=== PATIENT | male | born 1955 | race Hispanic/Latino ===

== ENCOUNTER 2016-08-20 16:29 | Emergency (ER) | payer SELFPAY ==
[2016-08-20] MEDS ORDERED: predniSONE 20 MG TAB ONE (18:51)
--- NOTE | 2016-08-20 19:01 | ERRECORD ---
[facility] EMERGENCY RECORD HPI ARTHRITIS (18:47 JL) CHIEF COMPLAINT: Patient presents for evaluation of left wrist, joint pain, joint swelling, Patient presents for evaluation of left finger joints, joint pain, joint swelling, Patient presents for evaluation of right wrist, joint pain, joint swelling, Patient presents for evaluation of right finger joints, joint pain, joint swelling, Patient presents for evaluation of Pt with chronic imflamatory arthritis. Off meds for months due to no insurance. He comes in when it gets bad for a few days of prednisone to calm it down. He says the past few days he has had increased pain and swelling in his wrist and hand joints. HISTORIAN: History provided by patient. LOCATION: Symptoms are generalized. QUALITY: Pain is dull in nature. TIME COURSE: Gradual onset of symptoms, Symptoms are worsening, are constant. ASSOCIATED WITH: No associated chills, No associated cough, No associated fever, No associated headache, No associated rash, Associated with stiffness, No associated trauma, No associated upper respiratory infection. EXACERBATED BY: Patient's condition exacerbated by extension, Patient's condition exacerbated by flexion. RELIEVED BY: Patient's condition relieved by nothing. ROS (18:49 [facility]) CONSTITUTIONAL: Historian denies chills, denies fever. RESPIRATORY: Historian denies cough. GI: Historian denies nausea, denies vomiting. MUSCULOSKELETAL: Historian reports joint stiffness, reports joint swelling. SKIN: Historian denies rash. NEUROLOGIC: Historian denies headache. PAST MEDICAL HISTORY MEDICAL HISTORY: arthritis, hepatitis C. (18:22 [facility]) MALE SURGICAL HISTORY: Patient has no surgical history. (18:22 [facility]) PSYCHIATRIC HISTORY: No previous psychiatric history. (18:22 [facility]) SOCIAL HISTORY: Patient drinks socially, Patient denies drug use, Patient currently uses tobacco, smokes cigarettes, Light tobacco smoker, Patient drinks socially, every week, Alcohol history notes: every 3-4 days, Patient is a former drug user, abused cocaine, Patient currently uses tobacco, Occasional or some day smoker, Patient has smoked for 30 years, Patient smokes 1/2 packs per day, Lives at home, alone. (18:22 [facility]) NOTES: Nursing records reviewed, Agree with nursing records. (18:50 [facility]) &a-1R&a+25V*p+0X*l8950K*c202B*c15G*c2P*p-0X&a-25V&a+1R Name: Marvin Baca : 1955 M61 MedRec: [id number] AcctNum: [id number] Prepared: SatAug 20, 2016 19:00 by Interface Page 1 of 2 pMD [facility] EMERGENCY RECORD KNOWN ALLERGIES codeine sulfate (Unconfirmed): Reaction: Nausea CURRENT MEDICATIONS No recorded medications VITAL SIGNS (18:17 [facility]) VITAL SIGNS: BP: 178/84, Pulse: 61, Resp: 18, Temp: 97.8 (Oral), Pain: 9, O2 sat: 97 on Room Air, Time: 08/20/2016 18:17. PHYSICAL EXAM (18:49 [facility]) CONSTITUTIONAL: Vital signs reviewed, Patient appears non toxic, Patient alert and oriented to person, place and time. EYES: Eye exam included findings of eyelids normal to inspection, Pupils equally round and reactive to light, Conjunctiva normal. UPPER EXTREMITY: Upper extremity exam included findings of inspection normal, range of motion normal, Radial pulse normal, distal motor intact, distal sensory intact, diffuse arthritic changes in hands and wrists. NEURO: Sondra coma scale 15, Neuro exam findings include patient oriented to person, place and time, Speech normal. SKIN: Skin exam included findings of skin warm, dry, and normal in color, no rash. PSYCHIATRIC: Normal affect. MEDICATION ADMINISTRATION SUMMARY Drug Name: predniSONE oral, Dose Ordered: 40 mg, Route: Oral, Status: Given, Time: 18:53 08/20/2016, Detailed record available in Medication Service section. PROBLEM LIST No recorded problems DIAGNOSIS (18:45 [facility]) FINAL: PRIMARY: RHEUMATOID ARTHRITIS UNSPECIFIED. PRESCRIPTION (18:44 [facility]) predniSONE oral: TABLET : 20 mg : ORAL : Quantity: 40 Unit: mg Route: ORAL Schedule: once a day Dispense: 5 DAYS May substitute. Refills: No Refills . NOTES: No Refills. DISPOSITION PATIENT: Disposition Type: Discharge, Disposition: *Discharge Home. (18:45 [facility]) Patient left the department. (18:54 [facility]) Kruse: [facility]=MD Miguel, Rigoberto [facility]=WALT Connor, Kristin &a-1R&a+25V*p+0X*s1842D*c202B*c15G*c2P*p-0X&a-25V&a+1R Name: Marvin Baca : 1955 M61 MedRec: [id number] AcctNum: [id number] Prepared: SatAug 20, 2016 19:00 by Interface Page 2 of 2 pMD MTDD
--- NOTE | 2016-08-20 19:07 | PICIS ---
[facility] EMERGENCY RECORD TRIAGE (18:20 [facility]) TRIAGE NOTES: Pt reporting to ER due to chronic arthritis pain. Diffuse all over aches. (18:20 [facility]) PATIENT: NAME: Marvin Baca, AGE: 61, GENDER: male, : Sat1955, TIME OF GREET: SatAug 20, 2016 16:30, PREFERRED LANGUAGE: Latvian, ETHNICITY: or , ECODE BILLING MAP: [facility] ER, SSN: [id number], Zip Code: [address], KG WEIGHT: 77.11 (est.), PHONE: , , , PERSON ID: [id number], PCP: Clare METZ POLLACHI. (18:20 [facility]) COMPLAINT: BODY PAIN/ARTHRITIS. (18:20 [facility]) ADMISSION: URGENCY: 4 Non Urgent, ADMISSION SOURCE: Work, TRANSPORT: Walk-in, BED: ER -04. (18:20 [facility]) IMMUNIZATIONS: Flu vaccine not up to date, Tetanus not up to date. (18:22 [facility]) SIRS SCORING: Heart Rate 55-109 (0), Temp range 96.8-101.1 (0), respiratory rate 12-24 (0), Mental Status altered: no (0). (18:22 [facility]) TRIAGE SCREENING: Patient denies suicidal ideation, Patient denies presence of domestic violence. (18:22 [facility]) PROVIDERS: TRIAGE NURSE: Kristin Connor RN. (18:20 [facility]) VITAL SIGNS: BP 178/84, Pulse 61, Resp 18, Temp 97.8, (Oral), Pain 9, O2 Sat 97, on Room Air, Time 08/20/2016 18:17. (18:17 [facility]) PREVIOUS VISIT ALLERGIES: codeine sulfate. (18:20 [facility]) codeine sulfate. (18:22 [facility]) KNOWN ALLERGIES codeine sulfate (Unconfirmed): Reaction: Nausea CURRENT MEDICATIONS No recorded medications VITAL SIGNS (18:17 [facility]) VITAL SIGNS: BP: 178/84, Pulse: 61, Resp: 18, Temp: 97.8 (Oral), Pain: 9, O2 sat: 97 on Room Air, Time: 08/20/2016 18:17. NURSING ASSESSMENT: HEAD-TO-TOE (18:22 [facility]) CONSTITUTIONAL: Complex assessment performed, Patient arrives ambulatory, Gait steady, History obtained from patient, Patient appears comfortable, Patient cooperative, Patient alert, Oriented to person, place and time, Skin warm, Skin dry, Skin normal in color, Pt reporting diffuse, [id number]-[id number] pain. Hx arthritis, chronic pain. Says he was here previously and given something for his pain, and missed his last apt with his primary doc. Reports not being able to raise his arms above shoulder level this AM due to pain. PAIN: bilat wrists, elbows, thimbs, R 1st and 2nd knuckles, on a scale 0-10 patient rates pain as 9. SKIN: Skin assessment findings include skin warm, Skin dry, Skin normal in color. NEURO: Pupils equally round and reactive to light, Able to close &a-1R&a+25V*p+0X*n1547V*c202B*c15G*c2P*p-0X&a-25V&a+1R Name: Marvin Baca : 1955 M61 MedRec: [id number] AcctNum: [id number] Prepared: SatAug 20, 2016 19:00 by Interface Page 1 of 4 pMD [facility] EMERGENCY RECORD eyes, Face symmetrical, Speech normal, GCS:, Eye opening: (4) - Spontaneous, Verbal: (5) - Oriented/conversive, Motor: (6) - Obeys commands/Spontaneous, GCS Total: 15. RESPIRATORY/CHEST: Breath sounds clear, Respiratory assessment findings include respiratory effort easy, Respirations regular, Conversing normally, Neck and chest exam findings include trachea midline, Chest expansion equal, Chest movement symmetrical. SAFETY: Side rails up, Cart/Stretcher in lowest position, Call light within reach, Hospital ID band on. NURSING PROCEDURE: DISCHARGE NOTE (18:54 [facility]) DISCHARGE: Patient discharged to home, ambulating without assistance, driving self, unaccompanied, Discharge instructions given to patient, Simple or moderate discharge teaching performed, by WALT Foster, Patient treated and evaluated by physician. BELONGINGS: Belongings and valuables with patient upon arrival to the Emergency Department include:, Belongings and valuables with patient at time of discharge include:. SAFETY: Side rails up, Cart/Stretcher in lowest position, Call light within reach, Hospital ID band on. MEDICATION ADMINISTRATION SUMMARY Drug Name: predniSONE oral, Dose Ordered: 40 mg, Route: Oral, Status: Given, Time: 18:53 08/20/2016, Detailed record available in Medication Service section. MEDICATION SERVICE (18:53 [facility]) predniSONE oral: Order: predniSONE oral (prednisone) - Dose: 40 mg : Oral Ordered by: Rigoberto Rivera MD Entered by: Rigoberto Rivera MD SatAug 20, 2016 18:44 , Acknowledged by: Kristin Connor RN SatAug 20, 2016 18:50 Documented as given by: Kristin Connor RN SatAug 20, 2016 18:53 Patient, Medication, Dose, Route and Time verified prior to administration. Amount given: 40 mg, Site: Medication administered P.O., Correct patient, time, route, dose and medication confirmed prior to administration, Patient advised of actions and side-effects prior to administration, Allergies confirmed and medications reviewed prior to administration, Patient tolerated procedure well, Administered by WALT Malone, Patient in position of comfort, Side rails up, Cart in lowest position, Call light in reach. HPI ARTHRITIS (18:47 [facility]) CHIEF COMPLAINT: Patient presents for evaluation of left wrist, joint pain, joint swelling, Patient presents for evaluation of left finger joints, joint pain, joint swelling, Patient presents for evaluation of right wrist, joint pain, joint &a-1R&a+25V*p+0X*t8675G*c202B*c15G*c2P*p-0X&a-25V&a+1R Name: Marvin Baca : 1955 M61 MedRec: [id number] AcctNum: [id number] Prepared: SatAug 20, 2016 19:00 by Interface Page 2 of 4 pMD [facility] EMERGENCY RECORD swelling, Patient presents for evaluation of right finger joints, joint pain, joint swelling, Patient presents for evaluation of Pt with chronic imflamatory arthritis. Off meds for months due to no insurance. He comes in when it gets bad for a few days of prednisone to calm it down. He says the past few days he has had increased pain and swelling in his wrist and hand joints. HISTORIAN: History provided by patient. LOCATION: Symptoms are generalized. QUALITY: Pain is dull in nature. TIME COURSE: Gradual onset of symptoms, Symptoms are worsening, are constant. ASSOCIATED WITH: No associated chills, No associated cough, No associated fever, No associated headache, No associated rash, Associated with stiffness, No associated trauma, No associated upper respiratory infection. EXACERBATED BY: Patient's condition exacerbated by extension, Patient's condition exacerbated by flexion. RELIEVED BY: Patient's condition relieved by nothing. ROS (18:49 [facility]) CONSTITUTIONAL: Historian denies chills, denies fever. RESPIRATORY: Historian denies cough. GI: Historian denies nausea, denies vomiting. MUSCULOSKELETAL: Historian reports joint stiffness, reports joint swelling. SKIN: Historian denies rash. NEUROLOGIC: Historian denies headache. PAST MEDICAL HISTORY MEDICAL HISTORY: arthritis, hepatitis C. (18:22 [facility]) MALE SURGICAL HISTORY: Patient has no surgical history. (18:22 [facility]) PSYCHIATRIC HISTORY: No previous psychiatric history. (18:22 [facility]) SOCIAL HISTORY: Patient drinks socially, Patient denies drug use, Patient currently uses tobacco, smokes cigarettes, Light tobacco smoker, Patient drinks socially, every week, Alcohol history notes: every 3-4 days, Patient is a former drug user, abused cocaine, Patient currently uses tobacco, Occasional or some day smoker, Patient has smoked for 30 years, Patient smokes 1/2 packs per day, Lives at home, alone. (18:22 [facility]) NOTES: Nursing records reviewed, Agree with nursing records. (18:50 [facility]) PHYSICAL EXAM (18:49 [facility]) CONSTITUTIONAL: Vital signs reviewed, Patient appears non toxic, Patient alert and oriented to person, place and time. EYES: Eye exam included findings of eyelids normal to inspection, Pupils equally round and reactive to light, Conjunctiva normal. UPPER EXTREMITY: Upper extremity exam included findings of &a-1R&a+25V*p+0X*d1236F*c202B*c15G*c2P*p-0X&a-25V&a+1R Name: Marvin Baca : 1955 M61 MedRec: [id number] AcctNum: [id number] Prepared: SatAug 20, 2016 19:00 by Interface Page 3 of 4 pMD [facility] EMERGENCY RECORD inspection normal, range of motion normal, Radial pulse normal, distal motor intact, distal sensory intact, diffuse arthritic changes in hands and wrists. NEURO: Sondra coma scale 15, Neuro exam findings include patient oriented to person, place and time, Speech normal. SKIN: Skin exam included findings of skin warm, dry, and normal in color, no rash. PSYCHIATRIC: Normal affect. EVENTS TRANSFER: Triage to Emergency Emergency Room -04. (SatAug 20, 2016 18:20 [facility]) Removed from Emergency Emergency Room -04. (18:54 [facility]) PROBLEM LIST No recorded problems DIAGNOSIS (18:45 [facility]) FINAL: PRIMARY: RHEUMATOID ARTHRITIS UNSPECIFIED. DISPOSITION PATIENT: Disposition Type: Discharge, Disposition: *Discharge Home. (18:45 [facility]) Patient left the department. (18:54 [facility]) INSTRUCTION (18:46 [facility]) DISCHARGE: ARTHRITIS RHEUMATOID. FOLLOWUP: Clare METZ, ISABEL, Internal Medicine, [address] [place] [id number], [phone], Follow up with Primary Care Physician in 7-10 days. PRESCRIPTION (18:44 [facility]) predniSONE oral: TABLET : 20 mg : ORAL : Quantity: 40 Unit: mg Route: ORAL Schedule: once a day Dispense: 5 DAYS May substitute. Refills: No Refills . NOTES: No Refills. IMAGING *DISCHARGE INSTRUCTIONS RECEIPT: Image captured from scanner. (18:55 [facility]) *SUPPLY CHARGE SHEET: Image captured from scanner. (18:56 [facility]) ADMIN (18:50 [facility]) DIGITAL SIGNATURE: MD Rivera Joshua. Kruse: [facility]=MD Rivera Joshua [facility]=WALT Connor, Kristin &a-1R&a+25V*p+0X*h9391R*c202B*c15G*c2P*p-0X&a-25V&a+1R Name: Marvin Baca : 1955 M61 MedRec: [id number] AcctNum: [id number] Prepared: Mon Aug 20, 2016 19:00 by Interface Page 4 of 4 pMD MTDD
== END 2016-08-20 18:54 | disposition home or self-care (01) ==
LOC: NAV ERS 16:29
DX: M06.9 Rheumatoid arthritis, unspecified (principal); F17.210 Nicotine dependence, cigarettes, uncomplicated
CPT/HCPCS: 99283; J7506

== ENCOUNTER 2016-09-10 12:53 | Emergency (ER) | payer SELFPAY ==
[2016-09-10] MEDS ORDERED: methylPREDNISolone Sod Succ/PF 125 MG/2 ML VIAL ONE (13:20)
== END 2016-09-10 13:38 | disposition home or self-care (01) ==
LOC: NAV ERS 12:53
DX: M13.0 Polyarthritis, unspecified (principal); I10 Essential (primary) hypertension; B19.20 Unspecified viral hepatitis C without hepatic coma; F17.210 Nicotine dependence, cigarettes, uncomplicated
CPT/HCPCS: 96372; J2930

== ENCOUNTER 2016-10-20 13:07 | Emergency (ER) | payer SELFPAY | END 2016-10-20 13:38 | disposition home or self-care (01) | LOC: NAV ERS 13:07 | DX: M06.9 Rheumatoid arthritis, unspecified (principal); I10 Essential (primary) hypertension; F17.210 Nicotine dependence, cigarettes, uncomplicated; Z79.899 Other long term (current) drug therapy | CPT/HCPCS: 99283 ==

== ENCOUNTER 2016-10-24 12:57 | Emergency (ER) | payer SELFPAY | END 2016-10-24 13:14 | disposition home or self-care (01) | LOC: NAV ERS 12:57 | DX: M19.90 Unspecified osteoarthritis, unspecified site (principal); I10 Essential (primary) hypertension; F17.210 Nicotine dependence, cigarettes, uncomplicated ==

== ENCOUNTER 2016-12-10 12:59 | Emergency (ER) | payer SELFPAY ==
[2016-12-10] MEDS ORDERED: predniSONE 20 MG TAB ONE (13:40)
== END 2016-12-10 13:47 | disposition home or self-care (01) ==
LOC: NAV ERS 12:59
DX: M19.032 Primary osteoarthritis, left wrist (principal); M19.031 Primary osteoarthritis, right wrist; M19.012 Primary osteoarthritis, left shoulder; M19.011 Primary osteoarthritis, right shoulder; M19.042 Primary osteoarthritis, left hand; M19.041 Primary osteoarthritis, right hand; I10 Essential (primary) hypertension; F17.210 Nicotine dependence, cigarettes, uncomplicated
CPT/HCPCS: 99283; J7506

== ENCOUNTER 2017-10-11 17:33 | Emergency (ER) | payer SELFPAY ==
[2017-10-11] MEDS ORDERED: predniSONE 20 MG TAB ONE (17:53)
== END 2017-10-11 17:54 | disposition home or self-care (01) ==
LOC: NAV ERS 17:33
DX: M13.0 Polyarthritis, unspecified (principal); I10 Essential (primary) hypertension; F17.210 Nicotine dependence, cigarettes, uncomplicated
CPT/HCPCS: 99283; J7506

== ENCOUNTER 2017-11-04 16:13 | Emergency (ER) | payer SELFPAY ==
[2017-11-04] MEDS ORDERED: methylPREDNISolone Acetate 40 mg/ml Vial ONE (16:50)
== END 2017-11-04 16:59 | disposition home or self-care (01) ==
LOC: NAV ERS 16:13
DX: M06.9 Rheumatoid arthritis, unspecified (principal); I10 Essential (primary) hypertension; Z87.891 Personal history of nicotine dependence; Z79.899 Other long term (current) drug therapy
CPT/HCPCS: 96372; J1030

== ENCOUNTER 2017-12-14 16:42 | Emergency (ER) | payer SELFPAY ==
[2017-12-14] MEDS ORDERED: methylPREDNISolone Acetate 40 mg/ml Vial ONE (17:30)
[2017-12-14 17:31] LABS: #Basophils 0.1 thou/uL (0.0-0.2); #Eosinphils 0.2 thou/uL (0.0-0.7); #Lymphocytes 2.3 thou/uL (1.20-3.40); #Monocytes 0.7 thou/uL (0.11-0.59); #Neutrophils 3.8 thou/uL (1.40-6.50); %Basophils 1.6 % (0.0-1.0); %Eosinophils 2.7 % (0.0-10.0); %Lymphocytes 31.8 % (21.0-51.0); %Monocytes 9.5 % (0.0-10.0); %Neutrophils 54.3 % (42.0-75.0); Hemoglobin 14.5 g/dL (14.0-18.0); Mean Corpuscular HGB CONC 31.8 g/dL (32.0-36.0); Mean Corpuscular Hemoglobin 29.7 pg (27.0-31.0); Mean Corpuscular Volume 93.5 fl (80.0-94.0); Mean Platelet Volume 6.4 fL (7.4-10.4); Platelet Count 285 thou/uL (130-400); RBC Distribution Width 12.4 % (11.5-14.5); Red Blood Cell (RBC) Count 4.87 mill/uL (4.70-6.10); White Blood Cell (WBC) Count 7.1 thou/uL (4.8-10.8)
[2017-12-14 17:48] LABS: Anion Gap 14 mmol/L (10-20); BUN (Urea Nitrogen) 10 mg/dL (8.4-25.7); Calc. Creatinine Clearance 0 mL/min (70-130); Calcium 8.9 mg/dL (7.8-10.44); Carbon Dioxide 20 mmol/L (22-29); Chloride 113 mmol/L (98-107); Estimated GFR-MDRD Greater than 90; Glucose 98 mg/dL (70-105); Potassium 3.7 mmol/L (3.5-5.1); Sodium 143 mmol/L (136-145)
== END 2017-12-14 18:07 | disposition home or self-care (01) ==
LOC: NAV ERS 16:42
DX: M06.9 Rheumatoid arthritis, unspecified (principal); I10 Essential (primary) hypertension; M19.90 Unspecified osteoarthritis, unspecified site; Z86.19 Personal history of other infectious and parasitic diseases; Z87.891 Personal history of nicotine dependence; Z79.899 Other long term (current) drug therapy
CPT/HCPCS: 80048; 85025; 96372; J1030

== ENCOUNTER 2018-01-20 12:42 | Emergency (ER) | payer SELFPAY ==
[2018-01-20] MEDS ORDERED: Meclizine HCl 25 MG TAB ONE (13:09)
[2018-01-20] MEDS ORDERED: Sodium Chloride 0.9% 1,000 ML ONE (13:09)
[2018-01-20] MEDS ORDERED: Ondansetron ODT 4 MG TAB ONE (13:09)
[2018-01-20 13:35] LABS: #Basophils 0.1 thou/uL (0.0-0.2); #Eosinphils 0.1 thou/uL (0.0-0.7); #Lymphocytes 2.1 thou/uL (1.20-3.40); #Monocytes 0.7 thou/uL (0.11-0.59); #Neutrophils 5.1 thou/uL (1.40-6.50); %Basophils 1.4 % (0.0-1.0); %Eosinophils 1.2 % (0.0-10.0); %Lymphocytes 26.2 % (21.0-51.0); %Monocytes 8.6 % (0.0-10.0); %Neutrophils 62.6 % (42.0-75.0); Hemoglobin 15.6 g/dL (14.0-18.0); Mean Corpuscular HGB CONC 33.2 g/dL (32.0-36.0); Mean Corpuscular Hemoglobin 30.3 pg (27.0-31.0); Mean Corpuscular Volume 91.2 fL (78.0-98.0); Mean Platelet Volume 7.6 fL (7.4-10.4); Platelet Count 245 thou/uL (130-400); RBC Distribution Width 11.6 % (11.5-14.5); Red Blood Cell (RBC) Count 5.13 mill/uL (4.70-6.10); White Blood Cell (WBC) Count 8.1 thou/uL (4.8-10.8)
[2018-01-20 13:51] LABS: ALT (SGPT) 36 U/L (8-55); AST (SGOT) 28 U/L (5-34); Albumin 3.7 g/dL (3.5-5.0); Alkaline Phosphatase 52 U/L (40-150); Anion Gap 13 mmol/L (10-20); BUN (Urea Nitrogen) 8 mg/dL (8.4-25.7); Bilirubin, Total 1.2 mg/dL (0.2-1.2); Calc. Creatinine Clearance 0 mL/min (70-130); Calcium 9.2 mg/dL (7.8-10.44); Carbon Dioxide 21 mmol/L (22-29); Chloride 106 mmol/L (98-107); Estimated GFR-MDRD Greater than 90; Globulin 3.7 g/dL (2.4-3.5); Glucose 102 mg/dL (70-105); Potassium 3.4 mmol/L (3.5-5.1); Protein, Total 7.4 g/dL (6.0-8.3); Sodium 137 mmol/L (136-145)
[2018-01-20 13:55] LABS: CKMB 0.9 ng/mL (0-6.6); Troponin I 0.015 ng/mL (< 0.028)
--- NOTE | 2018-01-20 14:38 | CT ---
CT HEAD NONCONTRAST: Date: 01/20/18 HISTORY: Hypertension. Altered mental status. FINDINGS: No comparison. There is no evidence of acute intracranial hemorrhage or infarct. There is a subtle area of decreased density through the periphery of each occipital lobe have the appearance of old ischemic insults. Th ere is no mass effect or shift of midline structures. Visualized paranasal sinuses remain well aerate d. IMPRESSION: Chronic-type findings. No acute intracranial abnormalities are demonstrated on noncontrast CT head. POS: [facility]
--- NOTE | 2018-01-20 14:40 | RAD ---
AP VIEW OF CHEST: Date: 01/20/18 INDICATION: Dizziness. COMPARISON: None. FINDINGS: There is linear opacity involving both lung bases that may reflect subsegmental volume loss. No defin ite air space consolidation, pleural effusion, or pneumothorax is evident. No acute osseous abnormali ty is evident. Scattered degenerative change. IMPRESSION: Bibasilar atelectasis. POS: [facility]
== END 2018-01-20 14:42 | disposition home or self-care (01) ==
LOC: NAV ERS 12:42
DX: H81.399 Other peripheral vertigo, unspecified ear (principal); I10 Essential (primary) hypertension; Z87.891 Personal history of nicotine dependence; Z79.899 Other long term (current) drug therapy
CPT/HCPCS: 36415; 70450; 71045; 80053; 82553; 84484; 85025; 93005; 94760; 96360; 99406; J7050; Q0162

== ENCOUNTER 2018-04-25 09:34 | Emergency (ER) | payer SELFPAY ==
[2018-04-25] MEDS ORDERED: traMADol HCl 50 MG TAB ONE (11:13)
[2018-04-25] MEDS ORDERED: methylPREDNISolone Acetate 40 mg/ml Vial ONE (11:14)
== END 2018-04-25 11:28 | disposition home or self-care (01) ==
LOC: NAV ERS 09:34
DX: M06.9 Rheumatoid arthritis, unspecified (principal); I10 Essential (primary) hypertension; Z87.891 Personal history of nicotine dependence; Z79.899 Other long term (current) drug therapy
CPT/HCPCS: 99283; J1030

== ENCOUNTER 2018-05-30 15:30 | Emergency (ER) | payer SELFPAY | END 2018-05-30 16:43 | disposition home or self-care (01) | LOC: NAV ERS 15:30 | DX: M19.90 Unspecified osteoarthritis, unspecified site (principal); I10 Essential (primary) hypertension; Z79.899 Other long term (current) drug therapy; Z87.891 Personal history of nicotine dependence | CPT/HCPCS: 99283 ==

== ENCOUNTER 2019-03-11 10:07 | Emergency (ER) | payer SELFPAY ==
[2019-03-11] MEDS ORDERED: Ketorolac Tromethamine 30 MG/ML VIAL ONE (10:22)
[2019-03-11 10:40] LABS: #Basophils 0.1 thou/uL (0.0-0.2); #Eosinphils 0.3 thou/uL (0.0-0.7); #Lymphocytes 2.8 thou/uL (1.20-3.40); #Monocytes 0.7 thou/uL (0.11-0.59); #Neutrophils 3.5 thou/uL (1.40-6.50); %Basophils 1.5 % (0.0-1.0); %Eosinophils 4.2 % (0.0-10.0); %Lymphocytes 37.2 % (21.0-51.0); %Monocytes 9.9 % (0.0-10.0); %Neutrophils 47.3 % (42.0-75.0); Hemoglobin 16.2 g/dL (14.0-18.0); Mean Corpuscular HGB CONC 32.9 g/dL (32.0-36.0); Mean Corpuscular Volume 94.3 fL (78.0-98.0); Mean Platelet Volume 7.5 fL (7.4-10.4); Platelet Count 162 thou/uL (130-400); RBC Distribution Width 11.7 % (11.5-14.5); Red Blood Cell (RBC) Count 5.21 mill/uL (4.70-6.10); White Blood Cell (WBC) Count 7.4 thou/uL (4.8-10.8)
--- NOTE | 2019-03-11 10:51 | RAD ---
XR Chest 1 View Portable HISTORY: Left-sided chest pain COMPARISON: 01/20/2018 FINDINGS: The heart size is normal. The lungs are well expanded without focal areas of consolidation, pneumothorax or pleural effusions. IMPRESSION: No radiographic evidence of acute cardiopulmonary process.
[2019-03-11 10:53] LABS: ALT (SGPT) 107 U/L (8-55); AST (SGOT) 59 U/L (5-34); Albumin 3.2 g/dL (3.4-4.8); Alkaline Phosphatase 63 U/L (40-150); Anion Gap 12 mmol/L (10-20); BUN (Urea Nitrogen) 13 mg/dL (8.4-25.7); Bilirubin, Total 0.5 mg/dL (0.2-1.2); CK (CPK) 26 U/L (30-200); Calc. Creatinine Clearance 0 mL/min (70-130); Calcium 8.8 mg/dL (7.8-10.44); Carbon Dioxide 23 mmol/L (23-31); Chloride 110 mmol/L (98-107); Estimated GFR-MDRD 89; Globulin 3.7 g/dL (2.4-3.5); Glucose 104 mg/dL (80-115); Potassium 3.7 mmol/L (3.5-5.1); Protein, Total 6.9 g/dL (5.8-8.1); Sodium 141 mmol/L (136-145)
== END 2019-03-11 11:23 | disposition home or self-care (01) ==
LOC: NAV ERS 10:07
DX: R07.89 Other chest pain (principal); F17.210 Nicotine dependence, cigarettes, uncomplicated; I10 Essential (primary) hypertension; Z79.899 Other long term (current) drug therapy
CPT/HCPCS: 71045; 80053; 82550; 84484; 85025; 93005; 96372; J1885

== ENCOUNTER 2019-04-26 17:04 | Emergency (ER) | payer SELFPAY ==
[2019-04-26] MEDS ORDERED: methylPREDNISolone Sod Succ/PF 125 MG/2 ML VIAL ONE (17:39)
== END 2019-04-26 17:45 | disposition home or self-care (01) ==
LOC: NAV ERS 17:04
DX: M54.42 Lumbago with sciatica, left side (principal); I10 Essential (primary) hypertension; F17.290 Nicotine dependence, other tobacco product, uncomplicated; Z79.52 Long term (current) use of systemic steroids; Z79.899 Other long term (current) drug therapy
CPT/HCPCS: 96372; 99283; J2930

== ENCOUNTER 2019-05-02 13:59 | Emergency (ER) | payer SELFPAY ==
[2019-05-02] MEDS ORDERED: Acetaminophen 325 MG TAB ONE (15:22)
[2019-05-02] MEDS ORDERED: Ketorolac Tromethamine 60 MG/2 ML VIAL ONE (15:22)
[2019-05-02] MEDS ORDERED: traMADol HCl 50 MG TAB ONE (15:27)
[2019-05-02] MEDS ORDERED: Orphenadrine Citrate 60 MG/2 ML VIAL ONE (15:28)
== END 2019-05-02 15:50 | disposition home or self-care (01) ==
LOC: NAV ERS 13:59
DX: M54.16 Radiculopathy, lumbar region (principal); M54.42 Lumbago with sciatica, left side; I10 Essential (primary) hypertension; F17.210 Nicotine dependence, cigarettes, uncomplicated
CPT/HCPCS: 96372; 99283; J1885; J2360

== ENCOUNTER 2020-08-04 09:49 | Emergency (ER) | payer SELFPAY ==
[2020-08-04] MEDS ORDERED: Ketorolac Tromethamine 30 MG/ML VIAL ONE (10:21)
--- NOTE | 2020-08-04 10:41 | RAD ---
Chest one view HISTORY: Chest pain. COMPARISON: 03/11/2019. FINDINGS: Cardiac silhouette and pulmonary vasculature are unremarkable. Mediastinum is midline. Lungs remain slightly hyperinflated with linear scarring at the lung bases. No lobar consolidation or evidence of pneumothorax. IMPRESSION : No acute abnormalities are demonstrated.
[2020-08-04 10:48] LABS: ALT (SGPT) 57 U/L (8-55); AST (SGOT) 37 U/L (5-34); Albumin 3.6 g/dL (3.4-4.8); Alkaline Phosphatase 70 U/L (40-110); Anion Gap 15 mmol/L (10-20); BUN (Urea Nitrogen) 16 mg/dL (8.4-25.7); Bilirubin, Total 0.6 mg/dL (0.2-1.2); Calc. Creatinine Clearance 0 mL/min (70-130); Calcium 9.3 mg/dL (7.8-10.44); Carbon Dioxide 19 mmol/L (23-31); Chloride 108 mmol/L (98-107); Globulin 4.6 g/dL (2.4-3.5); Glucose 105 mg/dL (80-115); Potassium 3.5 mmol/L (3.5-5.1); Protein, Total 8.2 g/dL (5.8-8.1); Sodium 138 mmol/L (136-145)
[2020-08-04 11:09] LABS: #Basophils 0.1 thou/uL (0.0-0.2); #Eosinphils 0.4 thou/uL (0.0-0.7); #Lymphocytes 3.2 thou/uL (1.20-3.40); #Neutrophils 4.1 thou/uL (1.40-6.50); %Basophils 1.5 % (0.0-1.0); %Eosinophils 4.3 % (0.0-10.0); %Lymphocytes 36.6 % (21.0-51.0); %Monocytes 11.1 % (0.0-10.0); %Neutrophils 46.5 % (42.0-75.0); Hemoglobin 14.9 g/dL (14.0-18.0); Mean Corpuscular HGB CONC 34.3 g/dL (32.0-36.0); Mean Corpuscular Volume 93.2 fL (78.0-98.0); Mean Platelet Volume 8.1 fL (7.4-10.4); Platelet Count 87 thou/uL (130-400); RBC Distribution Width 10.6 % (11.5-14.5); Red Blood Cell (RBC) Count 4.65 mill/uL (4.70-6.10); White Blood Cell (WBC) Count 8.7 thou/uL (4.8-10.8)
[2020-08-04 11:10] LABS: MDiff Complete? YES; Platelet Clumps SLIGHT; Platelet Morphology Comment Appears Decreased
== END 2020-08-04 11:28 | disposition home or self-care (01) ==
LOC: NAV ERS 09:49
DX: S29.011A Strain of muscle and tendon of front wall of thorax, initial encounter (principal); I10 Essential (primary) hypertension; M06.9 Rheumatoid arthritis, unspecified; F17.210 Nicotine dependence, cigarettes, uncomplicated; Z79.899 Other long term (current) drug therapy
CPT/HCPCS: 71045; 80053; 84484; 85025; 93005; 96374; J1885

== ENCOUNTER 2021-02-12 13:45 | Emergency (ER) | payer OTHER, SELFPAY ==
[~2021-02-12 13:45] MED LIST: Iopamidol 370 76% 100 ML VIAL ONE
[2021-02-12 14:21] LABS: #Basophils 0.1 thou/uL (0.0-0.2); #Eosinphils 0.3 thou/uL (0.0-0.7); #Lymphocytes 2.4 thou/uL (1.20-3.40); #Monocytes 0.6 thou/uL (0.11-0.59); #Neutrophils 3.9 thou/uL (1.40-6.50); %Basophils 1.7 % (0.0-1.0); %Eosinophils 3.8 % (0.0-10.0); %Lymphocytes 33.5 % (21.0-51.0); %Monocytes 7.6 % (0.0-10.0); %Neutrophils 53.3 % (42.0-75.0); Hemoglobin 13.7 g/dL (14.0-18.0); Mean Corpuscular HGB CONC 31.5 g/dL (32.0-36.0); Mean Corpuscular Hemoglobin 32.6 pg (27.0-31.0); Platelet Count 167 thou/uL (130-400); RBC Distribution Width 12.1 % (11.5-14.5); Red Blood Cell (RBC) Count 4.19 mill/uL (4.70-6.10); White Blood Cell (WBC) Count 7.3 thou/uL (4.8-10.8)
[2021-02-12 14:34] LABS: ALT (SGPT) 48 U/L (8-55); AST (SGOT) 44 U/L (5-34); Albumin 3.2 g/dL (3.4-4.8); Alkaline Phosphatase 66 U/L (40-110); Anion Gap 12 mmol/L (10-20); BUN (Urea Nitrogen) 12 mg/dL (8.4-25.7); Bilirubin, Total 0.7 mg/dL (0.2-1.2); Calc. Creatinine Clearance 0 mL/min (70-130); Carbon Dioxide 23 mmol/L (23-31); Chloride 110 mmol/L (98-107); Globulin 3.9 g/dL (2.4-3.5); Glucose 111 mg/dL (80-115); Lipase 55 U/L (8-78); Potassium 3.9 mmol/L (3.5-5.1); Protein, Total 7.1 g/dL (5.8-8.1); Sodium 141 mmol/L (136-145)
[2021-02-12] MEDS ORDERED: Aspirin Chewable 81 MG TAB ONE (14:35)
[2021-02-12] MEDS ORDERED: Famotidine 20 MG TAB ONE (14:35)
[2021-02-12] MEDS ORDERED: Sodium Chloride 0.9% 1,000 ML ONE (15:43)
[2021-02-12 17:14] LABS: SARS-CoV-2 NAA Rapid Test Not Detected (NotDetected)
[2021-02-12] MEDS ORDERED: Azithromycin 250 MG TAB ONE (18:08)
[2021-02-12 18:23] LABS: Troponin I Less than 0.010 ng/mL (< 0.028)
== END 2021-02-12 18:45 | disposition home or self-care (01) ==
LOC: NAV ERS 13:45
DX: R10.9 Unspecified abdominal pain (principal); M54.9 Dorsalgia, unspecified; Z20.822 Contact with and (suspected) exposure to COVID-19; I10 Essential (primary) hypertension
CPT/HCPCS: 0240U; 71046; 71275; 74174; 80053; 83690; 84484; 85025; 85379; 93005; J7050; Q9967

== ENCOUNTER 2021-03-10 14:33 | Emergency (ER) | payer OTHER, SELFPAY ==
[2021-03-10] MEDS ORDERED: Ketorolac Tromethamine 60 MG/2 ML VIAL ONE (16:15)
== END 2021-03-10 16:35 | disposition home or self-care (01) ==
LOC: NAV ERS 14:33
DX: S39.012A Strain of muscle, fascia and tendon of lower back, initial encounter (principal); S76.312A Strain of muscle, fascia and tendon of the posterior muscle group at thigh level, left thigh, initial encounter; I10 Essential (primary) hypertension; K21.9 Gastro-esophageal reflux disease without esophagitis; M19.90 Unspecified osteoarthritis, unspecified site; Z85.05 Personal history of malignant neoplasm of liver; Z85.028 Personal history of other malignant neoplasm of stomach; Z79.899 Other long term (current) drug therapy; W18.30XA Fall on same level, unspecified, initial encounter; Y93.02 Activity, running
CPT/HCPCS: 72131; 72192; 96372; J1885

== ENCOUNTER 2021-05-04 06:57 | Emergency (ER) | payer SELFPAY ==
[2021-05-04] MEDS ORDERED: predniSONE 20 MG TAB ONE (07:42)
== END 2021-05-04 07:50 | disposition home or self-care (01) ==
LOC: NAV ERS 06:57
DX: M19.90 Unspecified osteoarthritis, unspecified site (principal); C16.9 Malignant neoplasm of stomach, unspecified; I10 Essential (primary) hypertension; K21.9 Gastro-esophageal reflux disease without esophagitis; Z87.891 Personal history of nicotine dependence
CPT/HCPCS: 99283; J7512